=== PATIENT | female | born 1950 | race African-American/Black ===

== ENCOUNTER 2016-12-28 10:11 | Emergency (ER) | payer MEDICARE ==
[~2016-12-28] VITALS: Ht 160 cm; Wt 102.0 kg
[2016-12-28] MEDS ORDERED: IPRATROPIUM/ALBUTEROL 0.5-3(2.5)MG/3ML NEB HHN ONE (12:00)
[2016-12-28 14:05] VITALS: BP 140/78
== END 2016-12-28 14:41 | disposition home or self-care (01) ==
LOC: ER 10:22
DX: F43.9 Reaction to severe stress, unspecified (principal); R06.4 Hyperventilation; J45.909 Unspecified asthma, uncomplicated; I10 Essential (primary) hypertension
CPT/HCPCS: 93005; 94640; 99283; J7620